=== PATIENT | male | born 1965 | race Caucasian/White ===

== ENCOUNTER 2024-06-25 07:03 | Outpatient (CLI) | payer BC, SELFPAY ==
--- NOTE | 2024-06-25 07:30 | US_ITS ---
FINAL REPORT CLINICAL HISTORY: autoimmune hepatitis COMPARISON: None FINDINGS: Sonographic images of the right upper quadrant were obtained. The pancreas is partially obscured.The liver has an unremarkable appearance. There are multiple polyps present in the gallbladder proximally, the largest measuring up to 3 mm in size. No gallstones are identified. There is no evidence of biliary ductal dilatation.The common duct measures 3 mm. Limited images of the right kidney are unremarkable. IMPRESSION: Unremarkable appearance of the liver. Multiple gallbladder polyps proximally, without evidence of gallstones or biliary ductal dilatation. Reviewed, Interpreted and Dictated by Martha Adrian MD Transcribed by Jacquelin Reyes Authenticated and [facility]
== END 2024-06-25 23:59 | disposition home or self-care (01) ==
LOC: RAD 07:04
PROVIDERS: PCP Emergency Medicine; Visit Provider Nurse Practitioner Family
DX: K82.4 Cholesterolosis of gallbladder (principal); K75.4 Autoimmune hepatitis
CPT/HCPCS: 76705